=== PATIENT | female | born 1945 | race Hispanic/Latino ===

== ENCOUNTER 2024-01-11 09:01 | Day surgery (SDC) | payer OTHER ==
[~2024-01-11] VITALS: Ht 165.1 cm; Wt 91.6 kg
[2024-01-11] VITALS (13 sets, daily range): BP systolic 120–140; BP diastolic 57–81; PULSE 77–94; RESP 15–20
[2024-01-11] MEDS ORDERED: ERGO500093 PO (09:46)
[2024-01-11] MEDS ORDERED: CA C1TAB98 PO (09:46)
[2024-01-11] MEDS ORDERED: OMEP20CA12 PO (09:46)
[2024-01-11] MEDS ORDERED: VITA-395 PO (09:46)
[2024-01-11] MEDS ORDERED: TAMO20TA4 PO (09:46)
[2024-01-11] MEDS ORDERED: LEVO50CA4 PO (09:46)
[2024-01-11] MEDS ORDERED: METF-446 PO (09:46)
[2024-01-11] MEDS ORDERED: OMEG100014 PO (09:46)
[2024-01-11] MEDS: 0.9%NACL 1000ML 1,000 ML IV ONE (09:47)
[2024-01-11] MEDS ORDERED: PROPOFOL 10 MG/ML 20ML VIAL IV ONE (11:32)
== END 2024-01-11 13:10 | disposition home or self-care (01) ==
LOC: DAH 09:01
PROVIDERS: ATTEND Internal Medicine
DX: R12 Heartburn (principal); K29.70 Gastritis, unspecified, without bleeding; K44.9 Diaphragmatic hernia without obstruction or gangrene; K21.9 Gastro-esophageal reflux disease without esophagitis; R94.5 Abnormal results of liver function studies; K76.0 Fatty (change of) liver, not elsewhere classified; M19.90 Unspecified osteoarthritis, unspecified site; M81.0 Age-related osteoporosis without current pathological fracture; Z88.2 Allergy status to sulfonamides; Z90.49 Acquired absence of other specified parts of digestive tract; Z98.890 Other specified postprocedural states; Z90.710 Acquired absence of both cervix and uterus
CPT/HCPCS: 82948 ×3; 43239; J7030; J2704; A4620; A4215 ×2; A4223; A4222; A4221; A4663; A4606; J3490